=== PATIENT | male | born 1950 | race Asian ===

== ENCOUNTER 2024-07-21 13:02 | Emergency (ER) | payer MEDICARE, MEDICAID ==
[~2024-07-21] VITALS: Ht 157.5 cm; Wt 67.2 kg
[2024-07-21 13:21] VITALS: TEMP 98.6
[2024-07-21] MEDS ORDERED: IBUP-1492 PO (14:31)
[2024-07-21] MEDS ORDERED: AMOX-457 PO (14:31)
[2024-07-21] MEDS: PERTUSS(ACELL),DIPH,TET/PF 0.5 ML SYRINGE [ADULT] IM. ONE (14:45)
[2024-07-21] MEDS: AMOX TR/POT CLAV 875 MG/125 MG TABLET PO ONE (14:46)
[2024-07-21 14:49] VITALS: BP 164/108; PULSE 62; RESP 16; O2SAT 98
== END 2024-07-21 14:57 | disposition home or self-care (01) ==
LOC: EMS 13:04
DX: S51.832A Puncture wound without foreign body of left forearm, initial encounter (principal); J45.909 Unspecified asthma, uncomplicated; W55.01XA Bitten by cat, initial encounter; Y93.89 Activity, other specified; Y92.89 Other specified places as the place of occurrence of the external cause; Y99.8 Other external cause status
CPT/HCPCS: 90471; 90715; 99283